=== PATIENT | female | born 1970 | race African-American/Black ===

== ENCOUNTER → 2019-05-08 | Outpatient (CLI) | payer SELFPAY | END | disposition home or self-care (01) | LOC: SURG 09:47 | PROVIDERS: ATTEND Anesthesiology | DX: M54.16 Radiculopathy, lumbar region (principal); M47.816 Spondylosis without myelopathy or radiculopathy, lumbar region; G56.00 Carpal tunnel syndrome, unspecified upper limb; F11.20 Opioid dependence, uncomplicated; F11.90 Opioid use, unspecified, uncomplicated; F17.200 Nicotine dependence, unspecified, uncomplicated; I10 Essential (primary) hypertension; M19.90 Unspecified osteoarthritis, unspecified site; Z79.899 Other long term (current) drug therapy; Z79.891 Long term (current) use of opiate analgesic; Z72.89 Other problems related to lifestyle | CPT/HCPCS: 99204 ==